=== PATIENT | male | born 1970 | race African-American/Black ===

== ENCOUNTER 2017-01-07 14:04 | Emergency (ER) | payer OTHER ==
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
[2017-01-07 15:04] LABS: PROTHROMBIN TIME 12.7 SEC (11.4-15.4)
[2017-01-07 15:06] LABS: ABSOLUTE BASOPHILS # (AUTO) 0.1 10^3/uL (0.0-0.2); ABSOLUTE EOSINOPHILS # (AUTO) 0.1 10^3/uL (0.0-0.6); ABSOLUTE LYMPHOCYTES (AUTO) 1.8 10^3/uL (0.5-4.7); ABSOLUTE MONOCYTES (AUTO) 0.6 10^3/uL (0.1-1.4); ABSOLUTE NEUT (AUTO) 4.1 10^3/uL (1.7-8.2); EOSINOPHILS % (AUTO) 1.3 % (0-6); HEMATOCRIT 39.2 % (37.9-51.0); HEMOGLOBIN 13.5 g/dL (13.5-17.0); HGB HCT DIFFERENCE 1.3; LYMPHOCYTES % (AUTO) 27.5 % (13-45); MEAN CORPUSCULAR HGB CONC 34.4 g/dL (32.0-36.0); MEAN CORPUSCULAR VOLUME 93 fl (80-97); MONOCYTES % (AUTO) 8.6 % (3-13); RED BLOOD COUNT 4.21 10^6/uL (4.35-5.55); RED CELL DISTRIBUTION WIDTH 13.8 % (11.5-14.0); SEGMENTED NEUTROPHILS % (AUTO) 61.6 % (42-78); WHITE BLOOD COUNT 6.7 10^3/uL (4.0-10.5)
[2017-01-07 15:22] LABS: ALANINE AMINOTRANSFERASE 13 U/L (21-72); ALBUMIN 4.3 g/dL (3.5-5.0); ALKALINE PHOSPHATASE 56 U/L (38-126); ANION GAP 14 (5-19); ASPARTATE AMINO TRANSFERASE 22 U/L (17-59); BILIRUBIN,DIRECT 0.4 mg/dL (0.0-0.4); BILIRUBIN,TOTAL 0.4 mg/dL (0.2-1.3); BLOOD UREA NITROGEN 8 mg/dL (7-20); CALCIUM 9.5 mg/dL (8.4-10.2); CARBON DIOXIDE 22 mmol/L (22-30); CHLORIDE 109 mmol/L (98-107); CREATININE RESULT 0.83 mg/dL (0.52-1.25); GLUCOSE 91 mg/dL (75-110); POTASSIUM 4.1 mmol/L (3.6-5.0); TOTAL PROTEIN 7.7 g/dL (6.3-8.2)
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
[2017-01-07 15:35] LABS: ALCOHOL 370 mg/dL (NONE DETECTED)
[2017-01-08 02:41] VITALS: BP 163/102
== END 2017-01-07 23:50 | disposition home or self-care (01) ==
LOC: ER 14:04
DX: Z04.1 Encounter for examination and observation following transport accident (principal); F10.920 Alcohol use, unspecified with intoxication, uncomplicated; V47.1XXA Car passenger injured in collision with fixed or stationary object in nontraffic accident, initial encounter; Y92.410 Unspecified street and highway as the place of occurrence of the external cause; I10 Essential (primary) hypertension; F17.210 Nicotine dependence, cigarettes, uncomplicated
CPT/HCPCS: 36415; 70450; 72125; 80053; 80307; 85025; 85610; 99284

== ENCOUNTER 2017-07-08 16:12 | Emergency (ER) | payer SELFPAY ==
[2017-07-08 16:34] VITALS: BP 136/94
[2017-07-08] MEDS ORDERED: IBUPROFEN 800 MG TABLET PO ONE (17:07)
--- NOTE | 2017-07-08 17:12 | ER Document Report ---
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 Patient states that it hurts up by his hip and radiates down into his knee and does not radiate any further. He states that this happened on and has been taking 200 mg Motrins once a day at home without any significant improvement in his pain. He states it hurts worse with walking and bearing weight. Pain reproduced to deep palpation and with lateral hip extension. He otherwise denies any trauma, fall. Denies any with past medical issues. - CONSTITUTIONAL Constitutional: DENIES: Fever, Chills - EENT EENT: DENIES: Sore Throat, Ear Pain, Eye problems - NEURO Neurology: DENIES: Headache, Weakness, Vision blurred, Dizzinesss / Vertigo - CARDIOVASCULAR Cardiovascular: DENIES: Chest pain - RESPIRATORY Respiratory: DENIES: Trouble Breathing, Coughing - GASTROINTESTINAL Gastrointestinal: DENIES: Abdominal Pain, Black / Bloody Stools - URINARY Urinary: DENIES: Dysuria, Urgency, Frequency - REPRODUCTIVE Reproductive: DENIES: : - MUSCULOSKELETAL Musculoskeletal: DENIES: Extremity pain Past Medical History - Social History Smoking Status: Never Smoker Chew tobacco use (# tins/day): No Frequency of alcohol use: None Family History: Reviewed & Not Pertinent Patient has suicidal ideation: No Patient has homicidal ideation: No - Past Medical History Cardiac Medical History: Reports: Hx Hypertension Pulmonary Medical History: Reports: Hx Asthma Denies: Hx Tuberculosis Renal/ Medical History: Denies: Hx Peritoneal Dialysis Musculoskeltal Medical History: Reports Hx Arthritis Psychiatric Medical History: Reports: Hx Depression Past Surgical History: Denies: Hx Appendectomy, Hx Bowel Surgery, Hx Cholecystectomy, Hx Tonsillectomy - Immunizations Hx Diphtheria, Pertussis, Tetanus Vaccination: Yes Vertical Provider Document - CONSTITUTIONAL Agree With Documented VS: Yes Notes: PHYSICAL EXAM GENERAL: Alert, interacts well. EXTREMITIES: Moves all 4 extremities spontaneously. Right lateral IT band tenderness with pain reproducible palpation. Pain reproducible with right hip extension. Patient able to ambulate with mild limp but no ataxia, weakness. Hips nontender, pelvis stable. Strength equal bilaterally. No edema, dorsalis pedis pulses 2/4 bilaterally. No cyanosis. NEUROLOGICAL: Alert and oriented x4. Normal speech. PSYCH: Normal affect, normal mood. SKIN: Warm, dry, normal turgor. No rashes or lesions noted. - INFECTION CONTROL TRAVEL OUTSIDE OF THE [place] IN LAST 30 DAYS: No - RESPIRATORY O2 Sat by Pulse Oximetry: 98 Course - Re-evaluation Re-evalutation: 07/08/17 17:19 Patient is a 47-year-old male who is hemodynamically stable, no acute distress and afebrile. Presentation is consistent with IT band inflammation given his nature of work, presentation and exam. No evidence of a septic joint, gout flare, dislocation, or fracture on exam. Vitals wnl. At this time, I do not see an indication for labs or further imaging. Will discharge with conservative measures, return precautions, and follow-up recommendations. - Vital Signs Vital signs: Temp Pulse Resp BP Pulse Ox 98.8 F 87 16 136/94 H 98 07/08/17 16:31 07/08/17 16:31 07/08/17 16:31 07/08/17 16:31 07/08/17 16:31 Discharge - Discharge Clinical Impression: IT band syndrome Qualifiers: Laterality: right Qualified Code(s): M76.31 - Iliotibial band syndrome, right leg Condition: Good Disposition: HOME, SELF-CARE Additional Instructions: You can use a rolling pin to help loosen it, heat helps with inflammation. look up stretches and therapy techniques online for IT band syndrome Prescriptions: Ibuprofen [Motrin 800 mg Tablet] 800 mg PO Q8H PRN #30 tab PRN Reason: Referrals: LAURA PARK MD [Primary Care Provider] - Follow up in 1 month
== END 2017-07-08 17:22 | disposition home or self-care (01) ==
LOC: ER 16:12
DX: M76.31 Iliotibial band syndrome, right leg (principal); M79.604 Pain in right leg; I10 Essential (primary) hypertension; Z90.49 Acquired absence of other specified parts of digestive tract
CPT/HCPCS: 99283

== ENCOUNTER 2017-07-10 18:24 | Emergency (ER) | payer SELFPAY ==
[2017-07-10] MEDS ORDERED: METHOCARBAMOL 750 MG TABLET PO ONE (21:11)
--- NOTE | 2017-07-10 21:11 | ER Document Report ---
ED Extremity Problem, Lower - General Chief Complaint: Leg Pain Stated Complaint: PAIN IN BOTH LEGS Time Seen by Provider: 07/10/17 20:46 Notes: Patient says he started experiencing muscle spasms in the right upper leg Monday. The spasms go down the leg all the way down. This morning, he began having spasms in the left leg. Also has arthritis. He was seen here Monday for these symptoms and was told he is having muscle spasms and given ibuprofen 800 mg for the pain and he says "they aren't doing nothing!" Patient says the muscle spasms are worse when he is up walking around. He was provided with crutches when he was here on Monday and he is using them because it is too painful to put weight on his legs to walk.. His had some Flexeril 10 mg and is been taking them and say they are not helping. No previous problem with the spasms. 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 No fevers. No vomiting or diarrhea. Patient says he has 2 brothers, both of whom have arthritic conditions with similar symptoms. 1 of the brother says that he got a shot of steroids and his symptoms went away only to return a couple of years later. Another brother says that he has gout no parents with the same symptoms that this patient is aware of. TRAVEL OUTSIDE OF THE [place] IN LAST 30 DAYS: No - Related Data Allergies/Adverse Reactions: No Known Allergies Allergy (Verified 07/10/17 18:26) Past Medical History - Social History Smoking Status: Current Every Day Smoker Chew tobacco use (# tins/day): No Frequency of alcohol use: Occasional Drug Abuse: None Family History: Reviewed & Not Pertinent Patient has suicidal ideation: No Patient has homicidal ideation: No - Past Medical History Cardiac Medical History: Reports: Hx Hypertension, Other - Not on any statins for high cholesterol. Pulmonary Medical History: Reports: Hx Asthma Musculoskeltal Medical History: Reports Hx Arthritis, Denies Hx Gout, Denies Hx Muscle Weakness, Denies Hx Myositis Psychiatric Medical History: Reports: Hx Depression Surgical Hx: Negative Past Surgical History: Reports: None - Immunizations Hx Diphtheria, Pertussis, Tetanus Vaccination: Yes Review of Systems - Review of Systems Notes: REVIEW OF SYSTEMS: CONSTITUTIONAL : Denies fever. EENT: Denies eye, ear, nose or mouth or throat pain or other symptoms. CARDIOVASCULAR: Denies chest pain. RESPIRATORY: Denies cough, chest congestion, or shortness of breath. GASTROINTESTINAL: Denies abdominal pain or nausea, vomiting, or diarrhea. GENITOURINARY: Denies difficulty or painful urinating, urinary frequency, blood in urine. MUSCULOSKELETAL: Denies back or neck pain. Denies joint pain or swelling. Only complains of pain in the muscular component of the right and left upper legs and anterior thighs. SKIN: Denies rash or skin lesions. NEUROLOGICAL: Denies LOC or altered mental status. Denies headache. Denies sensory loss or motor deficits. ALL OTHER SYSTEMS REVIEWED AND NEGATIVE. Physical Exam - Vital signs Vitals: Temp Pulse Resp BP Pulse Ox 98.8 F 82 18 115/82 99 07/10/17 18:51 07/10/17 18:51 07/10/17 18:51 07/10/17 18:51 07/10/17 18:51 Interpretation: Normal. No: Febrile - Notes Notes: PHYSICAL EXAMINATION: GENERAL: Well-appearing, in no acute distress. However, patient does appear to be in legitimate, significant pain to walk and requires the crutches to assist him to walk. HEAD: Atraumatic, normocephalic. EYES: Pupils equal round and reactive to light, extraocular movements intact. ENT: oropharynx clear without exudates. Moist mucous membranes. NECK: Normal range of motion, supple. LUNGS: Breath sounds clear and equal bilaterally. HEART: Regular rate and rhythm without murmurs. ABDOMEN: Soft, nontender. No guarding or rebound. No masses. No bruits felt. Good femoral pulses present. BACK: No tenderness throughout entire back. EXTREMITIES: Normal range of motion but painful to do so and to press on the muscles of the anterior thighs, right greater than left. No increased warmth to the touch. No swelling noted. No erythema noted. Good pulses in patient's feet bilaterally. NEUROLOGICAL: Normal speech, ambulates with crutches. Normal sensory, motor, and reflex exams. Awake, alert, and oriented x3. PSYCH: Normal mood, normal affect. SKIN: Warm, dry, no rashes. Course - Re-evaluation Re-evalutation: 07/10/17 23:41 Have added on some lab studies for arthritic, immunologic conditions. I think the patient is having legitimate pain and he may have some form of myositis. He is not on a statin. I have advised him to continue to take the ibuprofen for anti-inflammatory purposes and have given him prescriptions for Robaxin and Percocet. I recommended he call his primary care provider, Dr. Park, tomorrow to schedule an appointment for further evaluation and workup of his condition. - Vital Signs Vital signs: Temp Pulse Resp BP Pulse Ox 98.8 F 82 18 115/82 99 07/10/17 18:51 07/10/17 18:51 07/10/17 18:51 07/10/17 18:51 07/10/17 18:51 - Laboratory Result Diagrams: 07/10/17 21:20 07/10/17 21:20 Laboratory results interpreted by me: 07/10/17 07/10/17 07/10/17 21:20 21:20 23:00 WBC 11.6 H Hgb 13.2 L Seg Neutrophils % 80.8 H Lymphocytes % 8.6 L Absolute Neutrophils 9.3 H ALT 16 L C-Reactive Protein 39.0 H Discharge - Discharge Clinical Impression: Bilateral leg pain Condition: Stable Disposition: HOME, SELF-CARE Additional Instructions: Leg Pain, Nonspecific We did not find an obvious cause for your leg pain. There's no sign of blood clot, infection, or other serious disease. Possible causes of vague leg pain include muscle or joint inflammation, disc disease in the lower back, pressure on the nerves in the back, or reduced blood flow through the arteries of the leg. Rest the leg. Pain can be eased with an antiinflammatory pain medicine such as ibuprofen. If the pain involves a small area, a heating pad might help. Call the doctor or return if the leg becomes swollen, weak, discolored, or increasingly painful, or if you develop any other significant change in your health. Leg Cramps There are many causes of leg cramps. Most of the time, there is no underlying serious medical condition. Calf muscle cramps that occur at rest or during the night are a nuisance, but are usually not caused by any serious medical problem. Leg cramps that occur during exercise (walking, stair climbing) can be caused by poor circulation. Cramping is more likely to occur if the legs swell. Over-exercise or overheating can cause muscle spasms even with good circulation. Cramp-like muscle pain can be an early symptom of blood clots in the lower leg. Sometimes cramping is due to a previous muscle injury. Occasionally cramping is a symptom of dehydration or of low levels of sodium, potassium, calcium or magnesium. When a cramp occurs, stretch gently and massage the cramped muscle. Get enough fluids, potassium, and sodium for the muscle to work normally. Avoid strenuous exercise for several days if you've been having frequent leg cramps. Medicines such a quinine may be helpful in some patients with night cramps. Call the doctor or return if you develop redness, swelling, bruising, or increased pain in the leg, or if the foot becomes cold, numb, pale, or discolored. Arthritis Your symptoms are due to arthritis. Arthritis is an inflammation of the joints. There are many types -- osteoarthritis (due to "wear and tear"), auto- immmune arthritis (such as rheumatoid, lupus, Deyvi's, and others), and crystal -induced arthritis (such as gout and pseudogout). The physician's examination, combined with laboratory tests, will determine the cause of your arthritis. All types of arthritis are treated with antiinflammatory medications. Other medication may be required for special types of arthritis, or if your problem does not respond to the antiinflammatory medicine. Local warmth may be helpful. Move the involved joints through the full range of motion daily. Mild exercise is usually still possible for most persons with arthritis (ask your physician). Swimming provides good exercise without damaging the joints. Contact the physician if you are worsening in any way. Take the ibuprofen you have been prescribed for its anti-inflammatory effects. Muscle Relaxers Muscle relaxing medications are usually prescribed for acute muscle spasm or injury to the neck and back. They are often combined with antiinflammatory pain medication for increased relief. You may stop the muscle relaxer when the pain and stiffness have improved. Start the medication again if spasms recur. Muscle relaxers may cause drowsiness, especially with the first dose. Do not operate machinery or drive while under the effects of the medication. Most muscle relaxers last up to 24 hours. Do not combine the medication with alcohol. Oral Narcotic Medication You have been given a prescription for pain control. This medication is a narcotic. It's best taken with food, as nausea can result if taken on an empty stomach. Don't operate machinery or drive within six hours of taking this medication. Do not combine this medicine with alcohol, or with any medication which can cause sedation (such as cold tablets or sleeping pills) unless you get permission from the physician. Narcotics tend to cause constipation. If possible, drink plenty of fluids and eat a diet high in fiber and fruits. FOLLOW-UP CARE: If you have been referred to a physician for follow-up care, call the physician s office for an appointment as you were instructed or within the next two days. If you experience worsening or a significant change in your symptoms, notify the physician immediately or return to the Emergency Department at any time for re-evaluation. Call Dr. Park's office tomorrow morning and schedule an appointment for for him to follow you up and do a thorough workup for arthritic or inflammatory muscle disease. Prescriptions: Methocarbamol [Robaxin 500 mg Tablet] 1,000 mg PO QID #60 tablet Oxycodone HCl/Acetaminophen [Percocet 5-325 mg Tablet] 1 - 2 tab PO Q4H PRN #15 tablet PRN Reason: Forms: Return to Work Referrals: LAURA PARK MD [Primary Care Provider] - Follow up tomorrow
[2017-07-10 21:35] LABS: ABSOLUTE BASOPHILS # (AUTO) 0.1 10^3/uL (0.0-0.2); ABSOLUTE EOSINOPHILS # (AUTO) 0.1 10^3/uL (0.0-0.6); ABSOLUTE NEUT (AUTO) 9.3 10^3/uL (1.7-8.2); BASOPHILS % (AUTO) 0.9 % (0-2); EOSINOPHILS % (AUTO) 0.9 % (0-6); HEMATOCRIT 40.1 % (37.9-51.0); HEMOGLOBIN 13.2 g/dL (13.5-17.0); LYMPHOCYTES % (AUTO) 8.6 % (13-45); MEAN CORPUSCULAR HEMOGLOBIN 30.1 pg (27.0-33.4); MEAN CORPUSCULAR HGB CONC 32.9 g/dL (32.0-36.0); MEAN CORPUSCULAR VOLUME 91 fl (80-97); MONOCYTES % (AUTO) 8.8 % (3-13); PLATELET COUNT 285 10^3/uL (150-450); RED BLOOD COUNT 4.38 10^6/uL (4.35-5.55); RED CELL DISTRIBUTION WIDTH 13.7 % (11.5-14.0); SEGMENTED NEUTROPHILS % (AUTO) 80.8 % (42-78); TOTAL CELLS COUNTED % (AUTO) 100 %; WHITE BLOOD COUNT 11.6 10^3/uL (4.0-10.5)
[2017-07-10 21:54] LABS: ALANINE AMINOTRANSFERASE 16 U/L (21-72); ALBUMIN 4.1 g/dL (3.5-5.0); ALKALINE PHOSPHATASE 61 U/L (38-126); ANION GAP 10 (5-19); ASPARTATE AMINO TRANSFERASE 19 U/L (17-59); BILIRUBIN,DIRECT 0.1 mg/dL (0.0-0.4); BILIRUBIN,TOTAL 0.5 mg/dL (0.2-1.3); BLOOD UREA NITROGEN 15 mg/dL (7-20); CALCIUM 9.7 mg/dL (8.4-10.2); CARBON DIOXIDE 28 mmol/L (22-30); CHLORIDE 100 mmol/L (98-107); GLUCOSE 98 mg/dL (75-110); POTASSIUM 4.8 mmol/L (3.6-5.0); SODIUM 138.3 mmol/L (137-145)
[2017-07-10] MEDS ORDERED: HYDROCODONE/ACETAMINOPHEN 5-325 MG (6 TAB/ER DISP) PO PRN (23:10)
[2017-07-10 23:31] LABS: URIC ACID 6.1 mg/dL (3.5-8.5)
[2017-07-10 23:39] VITALS: BP 121/89
== END 2017-07-10 23:39 | disposition home or self-care (01) ==
LOC: ER 18:24
DX: M79.604 Pain in right leg (principal); M79.605 Pain in left leg; M62.838 Other muscle spasm; Z79.899 Other long term (current) drug therapy; F17.200 Nicotine dependence, unspecified, uncomplicated; I10 Essential (primary) hypertension; J45.909 Unspecified asthma, uncomplicated
CPT/HCPCS: 99283; 36415; 82550; 83735; 84550; 85025; 85652; 86140; 86430; 80053; J3490

== ENCOUNTER 2017-07-11 10:01 | Emergency (ER) | payer SELFPAY ==
[2017-07-11] MEDS ORDERED: DIPHENHYDRAMINE HCL 50 MG/ML VIAL IV ONE (10:24)
[2017-07-11] MEDS ORDERED: MAGNESIUM SULFATE/D5W 1 GM/100 ML RTUPB IV ONE (10:25)
[2017-07-11] MEDS ORDERED: FAMOTIDINE INJ/PF 20 MG/2 ML SDV IV ONE (10:25)
[2017-07-11] MEDS ORDERED: METHYLPREDNISOLONE INJ 125 MG/2 ML SDV IV ONE (10:25)
--- NOTE | 2017-07-11 10:27 | ER Document Report ---
ED Medical Screen (RME) - General Chief Complaint: Allergic Reaction Stated Complaint: POSSIBLE ALLERGIC REACTION Time Seen by Provider: 07/11/17 10:24 Mode of Arrival: Ambulatory Information source: Patient Notes: This is a 47-year-old man with a history of hypertension (lisinopril), recent evaluation for hip pain. Patient states he was given Motrin on Monday night and then on last night he was given Percocet and Flexeril. Patient states that he felt his face swell up after taking the first dose of both the Percocet and Flexeril and then awoke this morning with persistent swelling of the face. Patient states he can swallow. There is no stridor on exam. There is no drooling. There is no posterior pharyngeal swelling or uvula swelling. There is no swelling in the floor the mouth. Patient does have significant swelling to the right side of the face and lips. TRAVEL OUTSIDE OF THE [place] IN LAST 30 DAYS: No - Related Data Allergies/Adverse Reactions: No Known Allergies Allergy (Verified 07/10/17 18:26) Past Medical History - Social History Chew tobacco use (# tins/day): No Frequency of alcohol use: None Drug Abuse: None - Past Medical History Cardiac Medical History: Reports: Hx Hypertension Pulmonary Medical History: Reports: Hx Asthma Denies: Hx Tuberculosis Renal/ Medical History: Denies: Hx Peritoneal Dialysis Musculoskeltal Medical History: Reports Hx Arthritis, Denies Hx Gout, Denies Hx Muscle Weakness Psychiatric Medical History: Reports: Hx Depression Past Surgical History: Denies: Hx Appendectomy, Hx Bowel Surgery, Hx Cholecystectomy, Hx Tonsillectomy - Immunizations Hx Diphtheria, Pertussis, Tetanus Vaccination: Yes Physical Exam - Vital signs Vitals: Temp Pulse Resp BP Pulse Ox 98.6 F 92 18 112/78 98 07/11/17 10:06 07/11/17 10:06 07/11/17 10:06 07/11/17 10:06 07/11/17 10:06 Course - Vital Signs Vital signs: Temp Pulse Resp BP Pulse Ox 98.6 F 92 18 112/78 98 07/11/17 10:06 07/11/17 10:06 07/11/17 10:06 07/11/17 10:06 07/11/17 10:06
--- NOTE | 2017-07-11 10:55 | ER Document Report ---
ED General - General Chief Complaint: Allergic Reaction Stated Complaint: POSSIBLE ALLERGIC REACTION Time Seen by Provider: 07/11/17 10:24 Mode of Arrival: Ambulatory Information source: Patient TRAVEL OUTSIDE OF THE [place] IN LAST 30 DAYS: No - HPI Notes: 47 yr old male presents today with complaints of having lip swelling facial swelling that started last night after he was given Robaxin and percocet the ER for complaints of left thigh pain, which she said was a muscle spasm that has been bothering him for the last week. Patient states that he was given muscle relaxer prior to discharge while he was in the ER last night. Patient denies taking any other medication since he was released from the emergency room. After leaving the emergency room, patient states that he ate half of a burrito, reports some difficulty with swallowing last night, however states he is slightly better today. Patient denies any shortness of breath. Denies any stridor, wheezing, drooling, uvular swelling. Denies fevers, chills, chest pain,palpitations, shortness of breath, dyspnea, nausea, vomiting, diarrhea, abdominal pain, hematuria,blurred vision, double vision, loss of vision, speech changes, LH, dizziness, syncope, headaches, wheezing, ST, URI, neck pain, weakness, bowel or bladder dysfunction, saddle anesthesia, numbness or tingling in bilateral upper or lower extremities equally, muscle paralysis, weakness in bilateral upper or lower extremities equally or rash. Denies IV drug use. - Related Data Allergies/Adverse Reactions: No Known Allergies Allergy (Verified 07/10/17 18:26) Past Medical History - General Information source: Patient - Social History Smoking Status: Former Smoker Chew tobacco use (# tins/day): No Frequency of alcohol use: None Drug Abuse: None Family History: Reviewed & Not Pertinent Patient has suicidal ideation: No Patient has homicidal ideation: No - Past Medical History Cardiac Medical History: Reports: Hx Hypertension Pulmonary Medical History: Reports: Hx Asthma Denies: Hx Tuberculosis Renal/ Medical History: Denies: Hx Peritoneal Dialysis Musculoskeltal Medical History: Reports Hx Arthritis, Denies Hx Gout, Denies Hx Muscle Weakness Psychiatric Medical History: Reports: Hx Depression Past Surgical History: Denies: Hx Appendectomy, Hx Bowel Surgery, Hx Cholecystectomy, Hx Tonsillectomy - Immunizations Hx Diphtheria, Pertussis, Tetanus Vaccination: Yes Review of Systems - Review of Systems Notes: REVIEW OF SYSTEMS: CONSTITUTIONAL : Denies fever, chills, or sweats. Denies recent illness. EENT: reports lip swelling. Denies eye, ear, throat, or mouth pain or symptoms. Denies nasal or sinus congestion or discharge. Denies throat, tongue , or mouth swelling or difficulty swallowing. CARDIOVASCULAR: Denies chest pain. Denies palpitations or racing or irregular heart beat. Denies ankle edema. RESPIRATORY: Denies cough, cold, or chest congestion. Denies shortness of breath, difficulty breathing, or wheezing, reports some discomfort with swallowing. GASTROINTESTINAL: Denies abdominal pain or distention. Denies nausea, vomiting , or diarrhea. Denies blood in vomitus, stools, or per rectum. Denies black, tarry stools. Denies constipation. GENITOURINARY: Denies difficulty urinating, painful urination, burning, frequency, blood in urine, or discharge. MUSCULOSKELETAL: Denies back or neck pain or stiffness. Denies joint pain or swelling. SKIN: Denies rash, lesions or sores. HEMATOLOGIC : Denies easy bruising or bleeding. LYMPHATIC: Denies swollen, enlarged glands. NEUROLOGICAL: Denies confusion or altered mental status. Denies passing out or loss of consciousness. Denies dizziness or lightheadedness. Denies headache. Denies weakness or paralysis or loss of use of either side. Denies problems with gait or speech. Denies sensory loss, numbness, or tingling. Denies seizures. PSYCHIATRIC: Denies anxiety or stress. Denies depression, suicidal ideation, or homicidal ideation. ALL OTHER SYSTEMS REVIEWED AND NEGATIVE. Dictation was performed using [employer] voice recognition software PHYSICAL EXAMINATION: GENERAL: Well-appearing, well-nourished and in no acute distress. HEAD: Atraumatic, normocephalic. EYES: Pupils equal round and reactive to light, extraocular movements intact, sclera anicteric, conjunctiva are normal. ENT: Noted upper and lower angioedema on the left side. Tympanic membranes are normal appearing with pearly color, normal-appearing landmarks and normal light reflex. Hearing is grossly intact. Has normal facial sensation to light touch in 3 branches of the trigeminal nerve. Normal facial movement. No clicking or popping when jaw opens or closes. The nasal mucosa is moist. The septum is midline. There is no evidence of septal hematoma. The turbinates are without abnormality. Angioedema of left sided upper and lower lips. the teeth are unremarkable. No swelling no erythema no exudate no angioedema no drooling no trismus bilateral arches equal. Uvula midline. The salivary glands appear unremarkable. The tongue is midline. The posterior pharynx is without erythema or exudate. The tonsils are normal appearing. NECK: Normal range of motion, supple without lymphadenopathy LUNGS: Breath sounds clear to auscultation bilaterally and equal. No wheezes rales or rhonchi. HEART: Regular rate and rhythm without murmurs ABDOMEN: Soft, nontender, nondistended abdomen. No guarding, no rebound. No masses appreciated. Musculoskeletal: Normal range of motion, no pitting or edema. No cyanosis. NEUROLOGICAL: Cranial nerves grossly intact. Normal speech, normal gait. Normal sensory, motor exams PSYCH: Normal mood, normal affect. SKIN: Warm, Dry, normal turgor, no rashes or lesions noted. Physical Exam - Vital signs Vitals: Temp Pulse Resp BP Pulse Ox 98.6 F 92 18 112/78 98 07/11/17 10:06 07/11/17 10:06 07/11/17 10:06 07/11/17 10:06 07/11/17 10:06 Course - Re-evaluation Re-evalutation: 07/11/17 15:11 A healthy well-appearing 47-year-old male presents today with complaints of left facial swelling after taking robaxin and Percocet in the ER prior to his discharge, he states he had the facial swelling after taking his medications. Patient felt that he had a little bit of discomfort swallowing, states he ate a burrito after he left the ER last night, states that his throat does not feel completely clear. Patient given a milligram of glucagon, which she states made him feel much better. Vital signs are stable. He is afebrile, states he is not having any issues with swallowing, facial swelling has decreased dramatically. Discussed with patient that we will start him on outpatient prednisone 20 mg a day 3 times daily for 5 days, oral Pepcid, Benadryl and also prescribe him an EpiPen. discussed with patient that if any worsening facial swelling, difficulty swallowing, fevers, chills, chest pain,palpitations, shortness of breath, dyspnea, nausea, vomiting, diarrhea, abdominal pain, hematuria,blurred vision, double vision, loss of vision, speech changes, LH, dizziness, syncope, headaches , wheezing, neck pain, weakness, bowel or bladder dysfunction, saddle anesthesia , numbness or tingling in bilateral upper or lower extremities equally, muscle paralysis, weakness in bilateral upper or lower extremities equally or rash to return to the ER juan. Questions and concerns answered by this provider. Patient verbalized an understanding of plan of care and agree with plan of care. Patient was discharged home. After performing a Medical Screening Examination, I estimate there is LOW risk for AIRWAY COMPROMISE, ANAPHYLAXIS, CELLULITIS, EPIGLOTTIS, or NECROTIZING FASCIITIS, thus I consider the discharge disposition reasonable. Also, there is no evidence or peritonitis, sepsis, or toxicity. I have reevaluated this patient multiple times and no significant life threatening changes are noted. The patient and I have discussed the diagnosis and risks, and we agree with discharging home with close follow-up with the understanding that symptoms and presentations can change. We also discussed returning to the Emergency Department immediately if new or worsening symptoms occur. We have discussed the symptoms which are most concerning (e.g., difficulty breathing or swallowing , fever, changing or worsening pain) that necessitate immediate return. - Vital Signs Vital signs: Temp Pulse Resp BP Pulse Ox 97.6 F 79 16 135/93 H 98 07/11/17 13:57 07/11/17 13:57 07/11/17 13:57 07/11/17 13:57 07/11/17 13:57 Discharge - Discharge Clinical Impression: Allergic reaction Qualifiers: Encounter type: initial encounter Qualified Code(s): T78.40XA - Allergy, unspecified, initial encounter Condition: Good Disposition: HOME, SELF-CARE Instructions: Acute Allergic Reaction to Drugs ([facility]) Additional Instructions: Take medications as directed. If symptoms become worse return to the emergency room as soon as possible. Return immediately for any new or worsening symptoms. Follow up with primary care provider, call tomorrow to make followup appointment. Prescriptions: Diphenhydramine HCl [Benadryl 50 mg Capsule] 1 cap PO Q6 PRN #14 capsule PRN Reason: Epinephrine [Epipen] 0.3 mg IJ PRN PRN #1 auto.injct PRN Reason: Famotidine 20 mg PO DAILY #14 tablet Prednisone [Deltasone 20 mg Tablet] 3 tab PO DAILY 5 Days #15 tablet Forms: Return to Work Referrals: LAURA PARK MD [Primary Care Provider] - Follow up in 3-5 days
[2017-07-11] MEDS ORDERED: GLUCAGON,HUMAN RECOMB 1 MG INJ IV STA (11:33)
--- NOTE | 2017-07-11 12:56 | RADIOLOGY REPORT (SQ) ---
EXAM DESCRIPTION: CHEST SINGLE VIEW COMPLETED DATE/TIME: 07/11/2017 12:25 pm REASON FOR STUDY: throat swelling COMPARISON: February 2016 EXAM PARAMETERS: NUMBER OF VIEWS: One view. TECHNIQUE: Single frontal radiographic view of the chest acquired. RADIATION DOSE: NA LIMITATIONS: None. FINDINGS: LUNGS AND PLEURA: No opacities, masses or pneumothorax. No pleural effusion. MEDIASTINUM AND HILAR STRUCTURES: No masses. Contour normal. HEART AND VASCULAR STRUCTURES: Heart normal in size. Normal vasculature. BONES: No acute findings. HARDWARE: None in the chest. OTHER: No other significant finding. IMPRESSION: NO ACUTE RADIOGRAPHIC FINDING IN THE CHEST. TECHNICAL DOCUMENTATION: JOB ID: [id number] [employer]- All Rights Reserved Reading location - IP/workstation name: [email or web address]
[2017-07-11 14:06] VITALS: BP 135/93
== END 2017-07-11 14:06 | disposition home or self-care (01) ==
LOC: ER 10:01
DX: T78.3XXA Angioneurotic edema, initial encounter (principal); M62.838 Other muscle spasm; I10 Essential (primary) hypertension; J45.909 Unspecified asthma, uncomplicated; Z87.891 Personal history of nicotine dependence
CPT/HCPCS: 99283; 96375; 96365; 71045; J1200; J1610; J2930; J3475; S0028

== ENCOUNTER 2019-10-07 20:35 | Emergency (ER) | payer SELFPAY ==
[2019-10-07] MEDS ORDERED: IBUPROFEN 600 MG TABLET PO ONE (20:49)
[2019-10-07] MEDS ORDERED: OXYCODONE-ACETAMINOPHEN 5-325 MG TABLET PO ONE (20:49)
--- NOTE | 2019-10-07 20:51 | ER Document Report ---
ED General - General Stated Complaint: RIGHT RIB PAIN Time Seen by Provider: 10/07/19 20:40 Primary Care Provider: LAURA PARK MD [Primary Care Provider] - Follow up as needed Notes: 50 male presents with right rib pain, worse with deep breathing and movement "I think a cracked rib" after he fell over his shoe while while on wet steps. He had been drinking earlier today but is not had alcohol in several hours. Not sure if he got knocked out but has no headache neck pain or back pain. No numbness or tingling. No blood thinner use. Brought in by EMS in a c-collar. Unclear criteria for c-collar. TRAVEL OUTSIDE OF THE [place] IN LAST 30 DAYS: No - Related Data Allergies/Adverse Reactions: Penicillins Allergy (Verified 10/07/19 20:58) Past Medical History - General Information source: Patient - Social History Smoking Status: Unknown if Ever Smoked Family History: Reviewed & Not Pertinent - Past Medical History Cardiac Medical History: Reports: Hx Hypertension Pulmonary Medical History: Reports: Hx Asthma Denies: Hx Tuberculosis Renal/ Medical History: Denies: Hx Peritoneal Dialysis Musculoskeletal Medical History: Reports Hx Arthritis, Denies Hx Gout, Denies Hx Muscle Weakness Psychiatric Medical History: Reports: Hx Depression Past Surgical History: Denies: Hx Appendectomy, Hx Bowel Surgery, Hx Cholecystectomy, Hx Tonsillectomy - Immunizations Hx Diphtheria, Pertussis, Tetanus Vaccination: Yes Review of Systems - Review of Systems Notes: REVIEW OF SYSTEMS GEN: Denies fever, chills, weight loss ENT: Denies sore throat, nasal discharge, ear pain EYES: Denies blurry vision, eye pain, discharge CV: Chest wall pain right side RESP: Denies cough, shortness of breath, wheezing GI: Denies abdominal pain, nausea, vomiting, diarrhea MSK: Denies joint pain/swelling, edema, SKIN: Denies rash, skin lesions LYMPH: Denies swollen glands/lymph nodes NEURO: Denies headache, focal weakness or numbness, dizziness PSYCH: Denies depression, suicidal or homicidal ideation PHYSICAL EXAMINATION General: No acute distress, well-nourished Head: Atraumatic, normocephalic ENT: Mouth normal, oropharynx moist, no exudates or tonsillar enlargement Eyes: Conjunctiva normal, pupils equal, lids normal Neck: No JVD, supple, no guarding CVS: Normal rate, regular rhythm, no murmurs Resp: No resp distress, equal and normal breath sounds bilaterally, right axillary chest wall tenderness without crepitus or deformity GI: Nondistended, soft, no tenderness to palpation, no rebound or guarding Ext: No deformities, no edema, normal range of motion in upper and lower ext Back: No CVA or midline TTP Skin: No rash, warm Lymphatic: No lymphadeopathy noted Neuro: Awake, alert. Face symmetric. GCS 15. Physical Exam - Vital signs Vitals: Temp Pulse Resp BP Pulse Ox 98.1 F 94 14 165/117 H 93 10/07/19 20:43 10/07/19 20:43 10/07/19 20:43 10/07/19 20:43 10/07/19 20:43 Course - Re-evaluation Re-evalutation: 10/07/19 20:50 Chest wall injury without signs of head or neck trauma. Clinically sober, nexus cleared collar without neuro deficits no imaging necessary of the head or neck With a two-view chest to rule out displaced rib fracture pulmonary contusion or hemopneumothorax elevating this is unlikely. Highly doubt solid organ injury given no tachycardia hypotension or abdominal tenderness. 10/08/19 00:46 Chest x-ray negative. Pressure stable. Better with pain meds. Discharged with topical lidocaine and Motrin. Incentive spirometer given by nurse. I have discussed with the patient there likely diagnosis, aftercare plan, follow-up plans and my usual and customary return precautions. They verbalized understanding of this. - Vital Signs Vital signs: Temp Pulse Resp BP Pulse Ox 98.0 F 80 16 166/97 H 96 10/07/19 21:30 10/07/19 21:30 10/07/19 21:30 10/07/19 21:30 10/07/19 21:30 - Diagnostic Test Radiology reviewed: Image reviewed, Reports reviewed Discharge - Discharge Clinical Impression: Contusion, chest wall Qualifiers: Encounter type: initial encounter Laterality: right Qualified Code(s): S20.211A - Contusion of right front wall of thorax, initial encounter Condition: Good Disposition: HOME, SELF-CARE Instructions: Rib Contusion ([facility]) Prescriptions: Ibuprofen [Motrin 600 mg Tablet] 600 mg PO Q8HP PRN #90 tablet PRN Reason: Lidocaine [Lidoderm 5% (700 mg) Transdermal Patch] 1 patch TP DAILY #10 adh..patch Referrals: LAURA PARK MD [Primary Care Provider] - Follow up as needed
--- NOTE | 2019-10-07 21:19 | RADIOLOGY REPORT (SQ) ---
CLINICAL INDICATION: R chest trauma. Pain TECHNIQUE: PA and lateral views were obtained of the chest COMPARISON: July 11, 2017. FINDINGS: The cardiomediastinal silhouette is top normal but stable. The lungs are grossly clear. No evidence of effusion or pneumothorax. Visualized bones are unremarkable. . IMPRESSION: No evidence of active intrathoracic disease . If there is suspicion for focal bony injury, dedicated bone radiography of the area in question is advised.
[2019-10-07 21:38] VITALS: BP 166/97
== END 2019-10-07 21:55 | disposition home or self-care (01) ==
LOC: ER 20:35
DX: S20.211A Contusion of right front wall of thorax, initial encounter (principal); R07.81 Pleurodynia; W10.9XXA Fall (on) (from) unspecified stairs and steps, initial encounter; Z88.0 Allergy status to penicillin; I10 Essential (primary) hypertension; J45.909 Unspecified asthma, uncomplicated
CPT/HCPCS: 71046; 99283

== ENCOUNTER 2019-10-09 22:30 | Emergency (ER) | payer SELFPAY ==
[2019-10-09] MEDS ORDERED: HYDROCODONE/ACETAMINOPHEN 5-325 MG TABLET PO ONE (23:23)
--- NOTE | 2019-10-10 01:07 | ER Document Report ---
ED Medical Screen (RME) - General Chief Complaint: Rib Pain Stated Complaint: FALL/RIB PAIN/HURTS TO BREATH Time Seen by Provider: 10/09/19 23:18 Primary Care Provider: LAURA PARK MD [Primary Care Provider] - Follow up as needed Mode of Arrival: Wheelchair Information source: Patient Notes: HPI; 49-year-old male presents emergency room complaining of persistent right rib pain. States he had a trip and fall off his porch 2 days ago landing on his right ribs and hitting him on the porch. States he was seen here in the emergency room had negative x-rays was discharged home with Motrin and lidocaine patches which he states he is been taking without relief. States it hurts to take a deep breath but denies shortness of breath or difficulty breathing. No history of previous rib injuries PE: Alert and oriented x3. Moderate distress noted. Lungs: Clear to auscultation without rales rhonchi wheezes. Heart: Regular rate rhythm without murmurs, rubs, gallops. Tenderness over the right anterior lower ribs. Unable to do full assessment in triage. I have greeted and performed a rapid initial assessment of this patient. A comprehensive ED assessment and evaluation of the patient, analysis of test results and completion of the medical decision making process will be conducted by additional ED providers. I have specifically instructed the patient or family members with the patient to immediately return to any nursing staff should anything change in the patient's condition or with their chief complaint. TRAVEL OUTSIDE OF THE [place] IN LAST 30 DAYS: No - Related Data Allergies/Adverse Reactions: Penicillins Allergy (Verified 10/07/19 20:58) Home Medications: IBUPROFEN. LIDOCAINE PATCH Past Medical History - Social History Chew tobacco use (# tins/day): Yes Frequency of alcohol use: None - Past Medical History Cardiac Medical History: Reports: Hx Hypertension Pulmonary Medical History: Reports: Hx Asthma Denies: Hx Tuberculosis Renal/ Medical History: Denies: Hx Peritoneal Dialysis Musculoskeltal Medical History: Reports Hx Arthritis, Denies Hx Gout, Denies Hx Muscle Weakness Psychiatric Medical History: Reports: Hx Depression Past Surgical History: Denies: Hx Appendectomy, Hx Bowel Surgery, Hx Cholecystectomy, Hx Tonsillectomy - Immunizations Hx Diphtheria, Pertussis, Tetanus Vaccination: Yes Physical Exam - Vital signs Vitals: Temp Pulse Resp BP Pulse Ox 98.7 F 74 16 199/115 H 100 10/09/19 22:37 10/09/19 22:37 10/09/19 22:37 10/09/19 22:37 10/09/19 22:37 Course - Vital Signs Vital signs: Temp Pulse Resp BP Pulse Ox 98.7 F 74 16 199/115 H 100 10/09/19 23:14 10/09/19 22:37 10/09/19 22:37 10/09/19 22:37 10/09/19 22:37 Doctor's Discharge - Discharge Referrals: LAURA PARK MD [Primary Care Provider] - Follow up as needed
--- NOTE | 2019-10-10 02:06 | RADIOLOGY REPORT (SQ) ---
CLINICAL INDICATION: pain/injury. . TECHNIQUE: 4 view(s) obtained of the right ribs. Single view chest. COMPARISON: None. FINDINGS: Mildly displaced fractures of the right lateral eighth ninth and 10th ribs.. Alignment appears anatomic. Surrounding soft tissues are unremarkable. The cardiomediastinal silhouette is normal. The lungs are grossly clear. Tiny right pleural effusion. No pneumothorax.. IMPRESSION: Fractures of the right lateral eighth ninth and 10th ribs. These are minimally displaced. No pneumothorax.
[2019-10-10] MEDS ORDERED: HYDROCODONE/ACETAMINOPHEN 5-325 MG TABLET PO ONE (04:00)
--- NOTE | 2019-10-10 04:26 | ER Document Report ---
ED General - General Chief Complaint: Rib Pain Stated Complaint: FALL/RIB PAIN/HURTS TO BREATH Time Seen by Provider: 10/09/19 23:18 Primary Care Provider: LAURA PARK MD [Primary Care Provider] - Follow up as needed Mode of Arrival: Wheelchair Notes: 49-year-old male with past medical history of hypertension presenting today after fall off his porch on October 06. Was seen in the ER on October 06. CXR was performed. Diagnosed with contusion. Was discharged with motrin and lidocaine which are not helping him sleep. Pain is keeping him from sleeping. States he has difficulty taking deep breaths. Pain is constant, localized to the right side, sharp with inspiration. Patient states that he does not know what blood pressure he takes. States that his takes care of that. He denies any additional symptoms to include headache, fevers, chills, abdominal pain or additional symptoms. TRAVEL OUTSIDE OF THE [place] IN LAST 30 DAYS: No - Related Data Allergies/Adverse Reactions: Penicillins Allergy (Verified 10/07/19 20:58) Home Medications: IBUPROFEN. LIDOCAINE PATCH Past Medical History - General Information source: Patient - Social History Smoking Status: Current Every Day Smoker Chew tobacco use (# tins/day): Yes Frequency of alcohol use: None Family History: Reviewed & Not Pertinent Patient has homicidal ideation: No - Past Medical History Cardiac Medical History: Reports: Hx Hypertension Pulmonary Medical History: Reports: Hx Asthma Denies: Hx Tuberculosis Renal/ Medical History: Denies: Hx Peritoneal Dialysis Musculoskeletal Medical History: Reports Hx Arthritis, Denies Hx Gout, Denies Hx Muscle Weakness Psychiatric Medical History: Reports: Hx Depression Past Surgical History: Denies: Hx Appendectomy, Hx Bowel Surgery, Hx Cholecystectomy, Hx Tonsillectomy - Immunizations Hx Diphtheria, Pertussis, Tetanus Vaccination: Yes Review of Systems - Review of Systems Constitutional: No symptoms reported EENT: No symptoms reported Cardiovascular: No symptoms reported Respiratory: See HPI Gastrointestinal: No symptoms reported Musculoskeletal: See HPI Physical Exam - Vital signs Vitals: Temp Pulse Resp BP Pulse Ox 98.7 F 74 16 199/115 H 100 10/09/19 22:37 10/09/19 22:37 10/09/19 22:37 10/09/19 22:37 10/09/19 22:37 Interpretation: Hypertensive - Notes Notes: Adult General: GENERAL: Alert, interacts well. No acute distress HEAD: Normocephalic, atraumatic EYES: Extraocular movements intact. ENT: Airway patent. Nares patent NECK: Full range of motion. Supple. Trachea midline. LUNGS: Clear to auscultation bilaterally, no wheezes, rales, or rhonchi. No respiratory distress. Nontender chest wall. HEART: Regular rate and rhythm. No murmurs, rubs or gallops. ABDOMEN: Soft, nontender. GENITOURINARY: Deferred EXTREMITIES: Moves all 4 extremities spontaneously. BACK: right lateral chest is tender to palpation. No cervical, thoracic, lumbar midline tenderness. Moves all extremities with full range of motion. NEUROLOGICAL: Alert and oriented x3. Normal speech. PSYCH: Normal affect, normal mood. SKIN: Warm, dry, normal turgor. No rashes or lesions noted. No bruising. Course - Re-evaluation Re-evalutation: 10/10/19 04:34 Patient was evaluated. He was given a second dose of [place]. States that the first one helped decrease the pain. Discussed with patient that xray shows he has fracture of his right eighth ninth and 10th ribs, no pneumothorax. Discussed with patient the use of incentive spirometry to take deep breaths to prevent pneumonia. Discussed with patient the use of splinting his side with a pillow when taking deep breaths to help decrease pain. Also recommend the use of ibuprofen to help alleviate pain. Will discharge patient with pain medications. Recommend patient follow-up with his primary care provider. Counseled patient that he can return to the emergency department if he has worsening symptoms or development of new symptoms. 10/10/19 07:09 - Vital Signs Vital signs: Temp Pulse Resp BP Pulse Ox 98.4 F 77 14 180/115 H 98 10/10/19 05:17 10/10/19 05:17 10/10/19 05:17 10/10/19 05:17 10/10/19 05:17 Discharge - Discharge Clinical Impression: Ribs, multiple fractures Qualifiers: Encounter type: subsequent encounter Fracture type: closed Laterality: right Fracture healing: with routine healing Qualified Code(s): S22.41XD - Multiple fractures of ribs, right side, subsequent encounter for fracture with routine healing Hypertension Qualifiers: Hypertension type: essential hypertension Qualified Code(s): I10 - Essential (primary) hypertension Condition: Stable Disposition: HOME, SELF-CARE Instructions: High Blood Pressure ([facility]), Rib Injuries and Fractures ([facility]) Additional Instructions: Please follow-up with your primary care for evaluation of your high blood pressure and your fractured ribs. Referrals: LAURA PARK MD [Primary Care Provider] - Follow up as needed
[2019-10-10] MEDS ORDERED: HYDROCODONE/ACETAMINOPHEN 5-325 MG (6 TAB/ER DISP) PO PRN (04:58)
[2019-10-10 05:20] VITALS: BP 180/115
== END 2019-10-10 05:20 | disposition home or self-care (01) ==
LOC: ER 22:30
DX: S22.41XD Multiple fractures of ribs, right side, subsequent encounter for fracture with routine healing (principal); R07.81 Pleurodynia; R06.00 Dyspnea, unspecified; W17.89XD Other fall from one level to another, subsequent encounter; F17.210 Nicotine dependence, cigarettes, uncomplicated; I10 Essential (primary) hypertension; Z88.0 Allergy status to penicillin; Z90.49 Acquired absence of other specified parts of digestive tract
CPT/HCPCS: 99283

== ENCOUNTER 2020-04-18 22:53 | Emergency (ER) | payer BC ==
[2020-04-18 23:03] VITALS: BP 177/109
[2020-04-18] MEDS ORDERED: KETOROLAC TROMETHAMINE 60 MG/2 ML SDV IM ONE (23:40)
[2020-04-18] MEDS ORDERED: METHYLPREDNISOLONE INJ 125 MG/2 ML SDV IM ONE (23:41)
[2020-04-18] MEDS ORDERED: CYCLOBENZAPRINE HCL 10 MG TABLET PO ONE (23:42)
--- NOTE | 2020-04-19 00:50 | ER Document Report ---
ED Medical Screen (RME) - General Chief Complaint: Hip Pain Stated Complaint: LEFT LEG NUMBNESS, COUGH Time Seen by Provider: 04/18/20 23:35 Primary Care Provider: LAURA PARK MD [Primary Care Provider] - Follow up as needed Mode of Arrival: Wheelchair Information source: Patient Notes: HPI; 50-year-old male presents to the emergency room complaining of left hip pain that radiates down his left leg that started earlier today. He denies any trauma or injury. Denies any history of herniated or bulging disc. Denies any urinary symptoms. Denies any loss control of her bowels or bladder. No saddle anesthesia. No red flag patient states is painful to ambulate. Did not take any medications prior to arrival. PE: Alert and oriented x3. Lungs: Clear to auscultation without rales, rhonchi, wheezes. Heart: Regular rate rhythm without murmurs, rubs, gallops. Negative straight leg raising bilaterally. There is pain on palpation from L5-S1. There is tenderness of the left sciatic notch. There is tenderness over the left iliac crest. He has painful range of motion with internal and external rotation over the left hip. I have greeted and performed a rapid initial assessment of this patient. A comprehensive ED assessment and evaluation of the patient, analysis of test results and completion of the medical decision making process will be conducted by additional ED providers. I have specifically instructed the patient or family members with the patient to immediately return to any nursing staff should anything change in the patient's condition or with their chief complaint. TRAVEL OUTSIDE OF THE [place] IN LAST 30 DAYS: No - Related Data Allergies/Adverse Reactions: Penicillins Allergy (Verified 10/07/19 20:58) Past Medical History - Social History Chew tobacco use (# tins/day): No Frequency of alcohol use: Heavy Drug Abuse: Marijuana - Past Medical History Cardiac Medical History: Reports: Hx Hypertension Pulmonary Medical History: Reports: Hx Asthma Denies: Hx Tuberculosis Renal/ Medical History: Denies: Hx Peritoneal Dialysis Musculoskeltal Medical History: Reports Hx Arthritis, Denies Hx Gout, Denies Hx Muscle Weakness Psychiatric Medical History: Reports: Hx Depression Past Surgical History: Denies: Hx Appendectomy, Hx Bowel Surgery, Hx Cholecystectomy, Hx Tonsillectomy - Immunizations Hx Diphtheria, Pertussis, Tetanus Vaccination: Yes Physical Exam - Vital signs Vitals: Temp Pulse Resp BP Pulse Ox 97.8 F 94 19 177/109 H 100 04/18/20 23:00 04/18/20 23:00 04/18/20 23:00 04/18/20 23:00 04/18/20 23:00 Course - Vital Signs Vital signs: Temp Pulse Resp BP Pulse Ox 97.8 F 94 19 177/109 H 100 04/18/20 23:00 04/18/20 23:00 04/18/20 23:00 04/18/20 23:00 04/18/20 23:00 Doctor's Discharge - Discharge Referrals: LAURA PARK MD [Primary Care Provider] - Follow up as needed
--- NOTE | 2020-04-19 01:06 | RADIOLOGY REPORT (SQ) ---
EXAM DESCRIPTION: XR HIP 2 OR MORE VIEWS COMPLETED DATE/TME: 04/19/2020 00:30 CLINICAL HISTORY: 50 years, Male, pain COMPARISON: None. NUMBER OF VIEWS: 2 TECHNIQUE: 2 views of the left hip and pelvis were obtained LIMITATIONS: None. FINDINGS: No bone or joint abnormality is seen about the left hip or pelvis. There is degenerative spurring at the L4-5 disc space. IMPRESSION: No acute abnormality as above. copyright 2010 [employer]- All Rights Reserved
== END 2020-04-19 03:15 | disposition left against medical advice (07) ==
LOC: ER 22:53
DX: M25.552 Pain in left hip (principal); R20.0 Anesthesia of skin; R05 Cough; Z88.0 Allergy status to penicillin; F12.10 Cannabis abuse, uncomplicated; I10 Essential (primary) hypertension; J45.909 Unspecified asthma, uncomplicated; Z53.20 Procedure and treatment not carried out because of patient's decision for unspecified reasons
CPT/HCPCS: 99281; 96372; 73502; J1885; J2930

== ENCOUNTER 2020-05-09 08:12 | Emergency (ER) | payer BC ==
[2020-05-09 09:23] LABS: ABSOLUTE BASOPHILS # (AUTO) 0.1 10^3/uL (0.0-0.2); ABSOLUTE EOSINOPHILS # (AUTO) 0.2 10^3/uL (0.0-0.6); ABSOLUTE LYMPHOCYTES (AUTO) 1.1 10^3/uL (0.5-4.7); ABSOLUTE MONOCYTES (AUTO) 0.5 10^3/uL (0.1-1.4); ABSOLUTE NEUT (AUTO) 6.3 10^3/uL (1.7-8.2); BASOPHILS % (AUTO) 0.9 % (0-2); EOSINOPHILS % (AUTO) 1.9 % (0-6); HEMATOCRIT 39.1 % (37.9-51.0); HEMOGLOBIN 13.4 g/dL (13.5-17.0); LYMPHOCYTES % (AUTO) 13.5 % (13-45); MEAN CORPUSCULAR HEMOGLOBIN 30.9 pg (27.0-33.4); MEAN CORPUSCULAR HGB CONC 34.2 g/dL (32.0-36.0); MEAN CORPUSCULAR VOLUME 90 fl (80-97); MONOCYTES % (AUTO) 6.5 % (3-13); PLATELET COUNT 265 10^3/uL (150-450); RED BLOOD COUNT 4.33 10^6/uL (4.35-5.55); RED CELL DISTRIBUTION WIDTH 13.9 % (11.5-14.0); SEGMENTED NEUTROPHILS % (AUTO) 77.2 % (42-78); TOTAL CELLS COUNTED % (AUTO) 100 %; WHITE BLOOD COUNT 8.1 10^3/uL (4.0-10.5)
[2020-05-09 09:42] LABS: ALBUMIN 4.2 g/dL (3.5-5.0); ALKALINE PHOSPHATASE 86 U/L (38-126); ANION GAP 8 (5-19); ASPARTATE AMINO TRANSFERASE 32 U/L (17-59); BILIRUBIN,DIRECT 0.2 mg/dL (0.0-0.4); BILIRUBIN,TOTAL 0.3 mg/dL (0.2-1.3); BLOOD UREA NITROGEN 12 mg/dL (7-20); CALCIUM 9.8 mg/dL (8.4-10.2); CARBON DIOXIDE 27 mmol/L (22-30); CHLORIDE 106 mmol/L (98-107); CREATINE KINASE 85 U/L (55-170); GLUCOSE 107 mg/dL (75-110); POTASSIUM 4.7 mmol/L (3.6-5.0); TOTAL PROTEIN 7.4 g/dL (6.3-8.2)
[2020-05-09 09:54] LABS: CREATINE KINASE MB 0.26 ng/mL (<4.55)
[2020-05-09 09:55] LABS: TROPONIN I < 0.012 ng/mL
--- NOTE | 2020-05-09 10:27 | ER Document Report ---
ED General - General Chief Complaint: High Blood Pressure Stated Complaint: HEADACHE,HIGH BLOOD PRESSURE Time Seen by Provider: 05/09/20 10:03 Primary Care Provider: LAURA PARK MD [Primary Care Provider] - Follow up as needed TRAVEL OUTSIDE OF THE [place] IN LAST 30 DAYS: No - HPI Notes: Chief complaint: Headache, dizziness and blood pressure problems History of present illness: 50-year-old male cigarette smoker followed by Dr. Park with history of hypertension now presenting for evaluation of headache, dizziness and poor control of blood pressure. Patient says he was taking lisinopril for the past several years but has stopped taking this because he thinks the medicine makes him feel dizzy and weak. He is not had any medication in the last 3 days. Says he is having a persistent dull headache and feeling of lightheadedness and unsteadiness on his feet. He denies any focal motor weakness. He denies any sensory deficit or visual changes. He denies any problems with speech or swallowing. States that he is not treated for any other chronic conditions aside from his blood pressure. He is currently smoking about half pack of cigarettes per day. He denies any drug use. Says he consumes 1 beer per day. 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 Lives at home with his . Denies any history of major surgery - Related Data Allergies/Adverse Reactions: Penicillins Allergy (Verified 05/09/20 08:49) Past Medical History - General Information source: Patient, [facility] Records - Social History Smoking Status: Current Every Day Smoker Frequency of alcohol use: Social Drug Abuse: None Family History: Reviewed & Not Pertinent - Past Medical History Cardiac Medical History: Reports: Hx Hypertension Pulmonary Medical History: Reports: Hx Asthma Denies: Hx Tuberculosis Endocrine Medical History: Denies: Hx Diabetes Mellitus Type 1, Hx Diabetes Mellitus Type 2 Renal/ Medical History: Denies: Hx Peritoneal Dialysis Musculoskeletal Medical History: Reports Hx Arthritis, Denies Hx Gout, Denies Hx Muscle Weakness Psychiatric Medical History: Reports: Hx Depression Surgical Hx: Negative Past Surgical History: Denies: Hx Appendectomy, Hx Bowel Surgery, Hx Cholecystectomy, Hx Tonsillectomy - Immunizations Hx Diphtheria, Pertussis, Tetanus Vaccination: Yes Review of Systems - Review of Systems Notes: Constitutional: Negative for fever. HENT: Negative for sore throat. Eyes: Negative for visual changes. Cardiovascular: Negative for chest pain. Respiratory: Negative for shortness of breath. Gastrointestinal: Negative for abdominal pain, vomiting or diarrhea. Genitourinary: Negative for dysuria. Musculoskeletal: Negative for back pain. Skin: Negative for rash. Neurological: As per HPI. 10 point ROS negative except as marked above and in HPI. Physical Exam - Vital signs Vitals: Temp Pulse Resp BP Pulse Ox 98.3 F 87 16 189/96 H 98 05/09/20 08:16 05/09/20 08:16 05/09/20 08:16 05/09/20 08:16 05/09/20 08:16 Interpretation: Hypertensive - Notes Notes: GENERAL: Well-developed well-nourished middle-age male in no acute distress. SKIN: Good turgor no rashes. HEAD: Normocephalic atraumatic. EYES: PERRLA. EOMI. Conjunctivae and sclerae clear. Fundi: Grade 2 hypertensive changes. EARS: CANALS AND TMS CLEAR. NOSE: CLEAR. MOUTH: Moist mucosa. Good dentition. No stridor or edema. No drooling. NECK: Supple. No masses or thyromegaly. No adenopathy. Carotids 2+ without bruits. No JVD. BACK: Symmetrical without tenderness. CHEST: Respirations unlabored. Breath sounds clear and symmetrical. HEART: Regular rhythm. No murmur gallop or rub. ABDOMEN: Soft nontender without masses, organomegaly or rebound. Bowel sounds normally active. No bruits. GENITALIA: Deferred. EXTREMITIES: No edema. No calf tenderness. Cap refill less than 1.5 seconds. Dorsalis pedis and posterior tibial pulses 3+ and symmetrical. NEUROLOGICAL: GCS 15. Alert and oriented x3. Normal gait. Fluent speech. Cranial nerves II through XII intact. Sensorimotor and cerebellar normal. Normal tone. PSYCHIATRIC: Appropriate affect. Course - Re-evaluation Re-evalutation: 05/09/20 13:02 Patient has a nonfocal neurologic exam. Noncontrast head CT normal per radiologist. Chest x-ray normal. His comprehensive metabolic profile, CBC, urinalysis and urine drug screen are all normal. He has had side effects he perceives to be related to lisinopril. He has been noncompliant with his medicine. He is also smoking heavily. I would encourage him to stop smoking and put him on a transdermal nicotine patch. We will keep him off lisinopril and will put him on some amlodipine. I will give him a 3-day work note and encouraged him to follow-up with his primary care physician, Dr. Park, this week. Findings, clinical impression and plan of treatment have been discussed with patient/family. Understanding of current findings and recommendations has been acknowledged by them and there is agreement regarding disposition and follow-up. - Vital Signs Vital signs: Temp Pulse Resp BP Pulse Ox 98.3 F 87 16 189/96 H 98 05/09/20 08:16 05/09/20 08:16 05/09/20 08:16 05/09/20 08:16 05/09/20 08:16 - Laboratory Results Result Diagrams: 05/09/20 08:55 05/09/20 08:55 Laboratory Results Interpreted: 05/09/20 08:55 RBC 4.33 L Hgb 13.4 L Critical Laboratory Results Reviewed: Yes Attending or Supervising Physician who Reviewed Labs: JE GALVEZ - Radiology Results Critical Radiology Results Reviewed: No Critical Results - EKG Interpretation by Me Additional EKG results interpreted by me: 05/09/20 10:25 Twelve-lead EKG reviewed by me contemporaneously: 0917 hrs. Indication for study: Hypertension Rhythm: Normal sinus Rate: 80 Intervals: Borderline QT prolongation with QTC 480 ms QRS axis: +[address]/T wave changes: None Comparison with prior tracing: Compared with prior study 03/16/2016 there are persistent changes of left ventricular hypertrophy Interpretation: LVH with borderline QT prolongation Discharge - Discharge Clinical Impression: Essential hypertension, Headache Condition: Stable Disposition: HOME, SELF-CARE Instructions: Calcium Channel Blockers ([facility]) Additional Instructions: Return here as needed for new or worsening symptoms: Pain that is worsening or unimproved Uncontrolled vomiting High fever or shaking chills Overall worsening Follow-up with your doctor this week. Start new blood pressure medicine and nicotine patch as instructed. Stop taking lisinopril. You have been provided a work note for 3 days. Prescriptions: Nicotine [Nicoderm 21 mg/24 Hr Transderm Patch] 1 patch TD DAILY #30 patch.td24 Amlodipine Besylate [Norvasc 2.5 mg Tablet] 2.5 mg PO DAILY #30 tablet Forms: Return to Work, Smoking Cessation Education Referrals: LAURA PARK MD [Primary Care Provider] - Follow up as needed
--- NOTE | 2020-05-09 11:29 | RADIOLOGY REPORT (SQ) ---
EXAM DESCRIPTION: CHEST 2 VIEWS IMAGES COMPLETED DATE/TIME: 05/09/2020 10:45 am REASON FOR STUDY: HTN COMPARISON: None. EXAM PARAMETERS: NUMBER OF VIEWS: two views TECHNIQUE: Digital Frontal and Lateral radiographic views of the chest acquired. RADIATION DOSE: NA LIMITATIONS: none FINDINGS: LUNGS AND PLEURA: No opacities, masses or pneumothorax. No pleural effusion. MEDIASTINUM AND HILAR STRUCTURES: Mildly tortuous thoracic aorta, somewhat greater than expected for age. No mediastinal masses. HEART AND VASCULAR STRUCTURES: Heart normal size. No evidence for failure. BONES: No acute findings. HARDWARE: None in the chest. OTHER: No other significant finding. IMPRESSION: No evidence of acute cardiopulmonary abnormality. TECHNICAL DOCUMENTATION: JOB ID: [id number] 2010 [employer]- All Rights Reserved Reading location - IP/workstation name: [email or web address]
--- NOTE | 2020-05-09 11:39 | EKG REPORT ---
SEVERITY:- BORDERLINE ECG - SINUS RHYTHM PROBABLE LEFT ATRIAL ABNORMALITY BORDERLINE PROLONGED QT INTERVAL : Confirmed by: Deysi Ronquillo MD 09-May-2020 11:38:23
--- NOTE | 2020-05-09 11:49 | RADIOLOGY REPORT (SQ) ---
EXAM DESCRIPTION: CT HEAD WITHOUT IMAGES COMPLETED DATE/TIME: 05/09/2020 11:00 am REASON FOR STUDY: LOPEZ, HTN COMPARISON: 01/07/2017 CT brain TECHNIQUE: Axial images acquired through the brain without intravenous contrast. Images reviewed wi th bone, brain and subdural windows. Additional sagittal and coronal reconstructions were generated. Images stored on PACS. All CT scanners at this facility use dose modulation, iterative reconstruction, and/or weight based d osing when appropriate to reduce radiation dose to as low as reasonably achievable (ALARA). [facility]: Dose Right [facility]: CareDose [facility]: Dose Right [facility]: Teradose 4D [facility]: [place] RADIATION DOSE: CT Rad equipment meets quality standard of care and radiation dose reduction techniq ues were employed. CTDIvol: 53.2 mGy. DLP: 964 mGy-cm. mGy. LIMITATIONS: None. FINDINGS: VENTRICLES: Normal size and contour. CEREBRUM: No masses. No hemorrhage. No midline shift. No evidence for acute infarction. Normal gra y/white matter differentiation. No areas of low density in the white matter. CEREBELLUM: No masses. No hemorrhage. No alteration of density. No evidence for acute infarction. EXTRAAXIAL SPACES: No fluid collections. No masses. ORBITS AND GLOBE: No intra- or extraconal masses. Normal contour of globe without masses. CALVARIUM: No fracture. PARANASAL SINUSES: No fluid or mucosal thickening. SOFT TISSUES: No mass or hematoma. OTHER: No other significant finding. IMPRESSION: NORMAL BRAIN CT WITHOUT CONTRAST. EVIDENCE OF ACUTE STROKE: NO. COMMENT: Quality ID # [id number]: Final reports with documentation of one or more dose reduction techniques (e.g., Automated exposure control, adjustment of the mA and/or kV according to patient size, use of iterative reconstruction technique) TECHNICAL DOCUMENTATION: JOB ID: [id number] 2010 [employer] All Rights Reserved Reading location - IP/workstation name: [email or web address]
[2020-05-09 12:30] LABS: APPEARANCE,URINE CLEAR; BILIRUBIN,URINE NEGATIVE (NEGATIVE); COLOR,URINE YELLOW; GLUCOSE, URINE NEGATIVE (NEGATIVE); KETONES,URINE NEGATIVE (NEGATIVE); LEUKOCYTE ESTERASE,URINE NEGATIVE (NEGATIVE); NITRITE,URINE NEGATIVE (NEGATIVE); PROTEIN,URINE NEGATIVE (NEGATIVE); URINE SPECIFIC GRAVITY 1.017; UROBILINOGEN,URINE NEGATIVE mg/dL (<2.0)
[2020-05-09 12:47] LABS: URINE AMPHETAMINES SCREEN NEGATIVE; URINE BARBITURATES SCREEN NEGATIVE; URINE BENZODIAZEPINES SCREEN NEGATIVE; URINE COCAINE SCREEN NEGATIVE; URINE MARIJUANA (THC) SCREEN NEGATIVE; URINE METHADONE SCREEN NEGATIVE
[2020-05-09 12:51] LABS: URINE PHENCYCLIDINE SCREEN NEGATIVE
[2020-05-09 13:18] VITALS: BP 159/99
== END 2020-05-09 13:19 | disposition home or self-care (01) ==
LOC: ER 08:12
DX: R51.9 Headache, unspecified (principal); R42 Dizziness and giddiness; F17.210 Nicotine dependence, cigarettes, uncomplicated; I10 Essential (primary) hypertension; Z88.0 Allergy status to penicillin
CPT/HCPCS: 36415; 70450; 71046; 80053; 80307; 81001; 82550; 82553; 84484; 85025; 93005; 93010; 99285